=== PATIENT | male | born 1945 | race Caucasian/White ===

== ENCOUNTER 2019-03-21 08:19 | Emergency (ER) | payer BC ==
[2019-03-21] MEDS ORDERED: LIDOCAINE UROJECT 10 ML APPL MM ONE (08:52)
--- NOTE | 2019-03-21 08:56 | Emergency Department Record ---
History of Present Illness - General Chief Complaint: Abdominal Pain Stated Complaint: NO BM IN A WEEK Time Seen by Provider: 03/21/19 08:25 Source: Patient, Family Mode of Arrival: Ambulatory Limitations: No limitations - History of Present Illness Initial Comments: The patient is here due to possibly not having a BM for a week. He denies any AP, nausea, vomiting, or fevers but also states he has been having difficulty urinating for some time also. He does have a hx of prostate issues. MD Complaint: Other Onset/Timin -: Week(s) Improves With: Nothing Worsens With: Nothing Associated Symptoms: Constipation - Related Data Home Medications Medication Instructions Recorded Confirmed Last Taken Amlodipine Besylate [Norvasc] 10 mg PO ASDIR 03/21/19 03/21/19 Unknown Aspirin [Aspir-Low] 81 mg PO DAILY 03/21/19 03/21/19 Unknown Cyanocobalamin (Vitamin B-12) 1,000 mcg PO DAILY 03/21/19 03/21/19 Unknown [Vitamin B-12] Ferrous Sulfate, Dried [Iron] 65 mg PO DAILY 03/21/19 03/21/19 Unknown Fluticasone Propionate [Flonase 9.9 ml NS BID 03/21/19 03/21/19 Unknown Allergy Relief] Metoprolol Tartrate 25 mg PO BID 03/21/19 03/21/19 Unknown Multivit,Calc,Mins/Folic Acid 200 mcg PO DAILY 03/21/19 03/21/19 Unknown [One-A-Day Proactive 65 Plus Tb] Oxybutynin Chloride [Ditropan] 5 mg PO DAILY 03/21/19 03/21/19 Unknown Pantoprazole Sodium [Protonix] 40 mg PO BID 03/21/19 03/21/19 Unknown Quetiapine Fumarate [Seroquel] 200 mg PO DAILY 03/21/19 03/21/19 Unknown Sertraline HCl [Zoloft] 150 mg PO DAILY 03/21/19 03/21/19 Unknown Simvastatin [Zocor] 20 mg PO DAILY 03/21/19 03/21/19 Unknown Tamsulosin HCl [Flomax] 0.8 mg PO DAILY 03/21/19 03/21/19 Unknown Previous Rx's Medication Instructions Recorded Sulfamethoxazole/Trimethoprim 1 tab PO BID #14 tab 03/21/19 [Bactrim Ds] Allergies Allergy/AdvReac Type Severity Reaction Status Date / Time fluoxetine [From Prozac] Allergy BEHAVIORAL Verified 03/21/19 08:37 CHANGES Travel Screening - Travel/Exposure Within Last 30 Days Have you traveled within the last 30 days?: No Review of Systems Constitutional: Denies: Chills, Fever Eyes: Denies: Eye discharge ENT: Denies: Congestion Respiratory: Denies: Cough, Dyspnea Cardiovascular: Denies: Arrhythmia Endocrine: Denies: Fatigue Gastrointestinal: Reports: Constipation. Denies: Abdominal pain, Nausea, Vomiting Genitourinary: Denies: Dysuria Musculoskeletal: Denies: Arthralgia Skin: Denies: Bruising Past Medical History - SOCIAL HISTORY Smoking Status: Former smoker Alcohol Use: None Drug Use: None - RESPIRATORY Hx Respiratory Disorders: No - CARDIOVASCULAR Hx Cardio Disorders: Yes Hx Irregular Heartbeat: Yes (afib) - NEURO Hx Neuro Disorders: Yes Hx Dementia: Yes - GI Hx GI Disorders: No - Hx Genitourinary Disorders: Yes Hx Prostate Problems: Yes - ENDOCRINE Hx Endocrine Disorders: No - MUSCULOSKELETAL Hx Musculoskeletal Disorders: No - PSYCH Hx Psych Problems: Yes Hx Anxiety: Yes Hx Depression: Yes - HEMATOLOGY/ONCOLOGY Hx Hematology/Oncology Disorders: No Family Medical History Any Significant Family History?: No Physical Exam - General General Appearance: Alert, Cooperative, No acute distress - Head Head exam: Atraumatic - Eye Eye exam: Normal appearance - ENT Throat exam: Normal inspection. negative: Tonsillar erythema, Tonsillar exudate - Neck Neck exam: Normal inspection, Full ROM. negative: Tenderness - Respiratory Respiratory exam: Normal lung sounds bilaterally. negative: Respiratory distress - Cardiovascular Cardiovascular Exam: Regular rate, Normal rhythm, Normal heart sounds - GI/Abdominal GI/Abdominal exam: Soft, Normal bowel sounds. negative: Rebound, Rigid, Tenderness - Rectal Rectal exam: negative: Decreased rectal tone, Fecal impaction (The patient does have firm stool in the vault but is not impacted.) - Extremities Extremities exam: Normal inspection, Full ROM, Normal capillary refill. negative: Tenderness - Neurological Neurological exam: Alert. negative: Motor sensory deficit Course Vital Signs 03/21/19 08:30 Temperature 97.9 F Pulse Rate 79 Respiratory 18 Rate Blood Pressure 172/83 Pulse Ox 98 - Reevaluation(s) Reevaluation #1: The patient is doing a lot better at this time. He did have a BM after the enemas and is feeling much better and would like to go home. We did place a Lechuga catheter and found the patient with 750 cc's of urine in his bladder. We did remove the catheter due to concern about the patient accidentally pulling on it. He does appear to have a mild UTI so we will treat him for it. I did discuss the issues with the patient's daughter and she will F/U with his PCP next week as planned and also will have the anemia addressed. 03/21/19 11:13 Medical Decision Making - Lab Data Result diagrams: 03/21/19 09:30 03/21/19 09:30 Disposition Disposition: Discharge Clinical Impression: Constipation Qualifiers: Constipation type: unspecified constipation type Qualified Code(s): K59.00 - Constipation, unspecified Disposition: Home, Self-Care Condition: (2) Stable Instructions: Constipation (ED) Additional Instructions: Please take the Bactrim as directed and also drink the bottle of Mg Citrate today as directed. Please see your family doctor next week for recheck and please see the Urologist Dr. Cameron WOODS. Return to the ER for any worsening symptoms, pain, fever, or vomiting. Prescriptions: Sulfamethoxazole/Trimethoprim [Bactrim Ds] 1 tab PO BID #14 tab Referrals: [facility] [Provider Group] Ernst Barnes M.D. [MEDICAL DOCTOR] - Forms: Patient Portal Access Time of Disposition: 11:19 Quality - Quality Measures Quality Measures: N/A - Blood Pressure Screening View Details: Yes Does Patient Have Any of the Following: No Blood Pressure Classification: Pre-Hypertensive BP Reading Systolic Measurement: 172 Diastolic Measurement: 83 Screening for High Blood Pressure: < Pre-Hypertensive BP, F/U Documented > [[id number]] Pre-Hypertensive Follow-up Interventions: Referral to alternative/primary care provider.
[2019-03-21 09:35] LABS: HEMATOCRIT 30.2 % (42.0-52.0); HEMOGLOBIN 9.3 gm/dl (14.0-18.0); MEAN CELL VOLUME 89.1 fl (81-97); MEAN CORPUSCULAR HEMOGLOBIN 27.4 pg (27-33); MEAN CORPUSCULAR HGB CONC 30.8 g/dl (32-36); MEAN PLATELET VOLUME 9.3 fl (7.4-10.4); PLATELET COUNT 268 K/uL (130-400); RED BLOOD COUNT 3.39 M/uL (4.40-5.70); RED CELL DISTRIBUTION WIDTH 13.8 % (11.5-14.5); URINE APPEARANCE CLEAR; URINE BILIRUBIN NEGATIVE (NEGATIVE); URINE BLOOD SMALL (NEGATIVE); URINE COLOR YELLOW; URINE GLUCOSE (UA) NEGATIVE (NEGATIVE); URINE KETONE NEGATIVE (NEGATIVE); URINE LEUKOCYTE ESTERASE SMALL (NEGATIVE); URINE NITRITE NEGATIVE (NEGATIVE); URINE PROTEIN NEGATIVE (NEGATIVE); URINE UROBILINOGEN 0.2 E.U./dL (0.20 - 1.00); WHITE BLOOD COUNT W/O DIFF 6.7 K/uL (4.2-12.2)
[2019-03-21 09:43] LABS: BLOOD UREA NITROGEN 12 mg/dL (8-23); CREATININE 0.8 mg/dL (0.7-1.2); EST GLOMERULAR FILTRATION RATE > 60 mL/min; URINE BACTERIA FEW; URINE EPITHELIAL CELLS NONE SEEN (FEW); URINE RBC 0 - 2 (NONE SEEN)
[2019-03-21 09:46] LABS: GLUCOSE,RANDOM 104 mg/dL (74-109)
[2019-03-21 09:52] LABS: HYPOCHROMIA 1+
[2019-03-21] MEDS ORDERED: MAGNESIUM CITRATE 296 ML BTL PO ONE (11:15)
== END 2019-03-21 11:34 | disposition home or self-care (01) ==
LOC: ER 08:19
DX: K59.00 Constipation, unspecified (principal); N39.0 Urinary tract infection, site not specified; D64.9 Anemia, unspecified; F03.90 Unspecified dementia, unspecified severity, without behavioral disturbance, psychotic disturbance, mood disturbance, and anxiety; I48.91 Unspecified atrial fibrillation; Z87.891 Personal history of nicotine dependence
CPT/HCPCS: 80048; 81001; 85027; 99284